=== PATIENT | male | born 1985 | race Caucasian/White ===

== ENCOUNTER 2018-12-25 11:39 | Inpatient (IN) | payer OTHER ==
[~2018-12-25] VITALS: Ht 182.9 cm; Wt 81.7 kg
[2018-12-25] MEDS ORDERED: HALOPERIDOL 5 MG TABLET PO PRN (14:15)
[2018-12-25] MEDS ORDERED: LORazepam 2 MG TABLET PO PRN (14:15)
[2018-12-25] MEDS ORDERED: DiphenhydrAMINE HCL 50 MG/ML VIAL IM ONE (14:15)
[2018-12-25] MEDS ORDERED: LORazepam 2 MG/ML VIAL IM ONE (14:15)
[2018-12-25] MEDS ORDERED: ZOLPIDEM TARTRATE 10 MG TABLET PO PRN (14:15)
[2018-12-25] MEDS ORDERED: HALOPERIDOL LACTATE 5 MG/ML VIAL IM ONE (14:15)
[2018-12-25] MEDS ORDERED: MAGNESIUM SULFATE 2 GM/WATER 50 ML IV ONE (14:45)
[2018-12-25] MEDS ORDERED: SODIUM CHLORIDE 0.9% 1,000 ML IV ONE ×3 (14:45→19:15)
[2018-12-25] MEDS ORDERED: CALCIUM GLUCONATE 100 MG/ML 10 ML IVP ONE (14:45)
[2018-12-25 15:55] LABS: BASOPHILS % (AUTO) 0.2 % (0.0-2.0); EOSINOPHILS % (AUTO) 0 % (1.0-6.0); HEMOGLOBIN 15.1 g/dL (13.5-17.5); LYMPHOCYTES % (AUTO) 15.5 % (22.0-44.0); MEAN CORPUSCULAR HEMOGLOBIN 31.5 pg (26.0-34.0); MEAN CORPUSCULAR HGB CONC 33.5 G/dL (31.0-37.0); MEAN CORPUSCULAR VOLUME 94 fL (80-100); MONOCYTES # (AUTO) 1.3 K/uL (0.1-1.0); MONOCYTES % (AUTO) 10.2 % (2.0-9.0); NEUTROPHILS # (AUTO) 9.8 K/uL (1.8-7.7); NEUTROPHILS % (AUTO) 74.1 % (40.0-70.0); PLATELET COUNT (AUTO) 249 K/uL (150-450); RED BLOOD CELL COUNT(AUTO) 4.79 MIL/uL (4.50-5.90); RED CELL DISTRIBUTION WIDTH 13.9 % (11.5-14.5)
[2018-12-25 16:10] LABS: ANION GAP 11 mmol/L (8-16); CALCIUM, TOTAL 9.8 mg/dL (8.8-10.5); CARBON DIOXIDE 26 mmol/L (22-29); CHLORIDE 102 mmol/L (98-107); GLOMERULAR FILTR. RATE CALC > 60 mL/min (>60); GLUCOSE,RANDOM 127 mg/dL (70-110); POTASSIUM 3.8 mmol/L (3.5-5.1); SODIUM SERUM 139 mmol/L (136-145); UREA NITROGEN, BLOOD 15 mg/dL (7-18)
[2018-12-25 16:11] LABS: ALANINE AMINOTRANSFERASE 19 U/L (12-78); ALBUMIN 4.9 g/dL (3.4-5.0); ALKALINE PHOSPHATASE 88 U/L (46-116); ASPARTATE AMINOTRANSFERASE 18 U/L (15-37); BILIRUBIN,TOTAL 0.8 mg/dL (0.1-1.0); PHOSPHORUS 3.5 mg/dL (2.5-4.9); TOTAL PROTEIN, SERUM 8.5 g/dL (6.4-8.2)
[2018-12-25 17:51] LABS: CREATINE KINASE, TOTAL ONLY 403 U/L (39-308)
[2018-12-25] MEDS ORDERED: LORazepam 2 MG/ML VIAL IVP ONE (19:15)
[2018-12-25] MEDS: OLANZapine 5 MG TABLET PO SCH (20:39)
[2018-12-26 00:31] VITALS: BP 117/83
[2018-12-26] MEDS ORDERED: ACETAMINOPHEN 325 MG TABLET PO PRN (03:30)
[2018-12-26] MEDS ORDERED: OxyCODONE HCL/ACETAMINOPHEN 5-325 MG TABLET PO PRN ×2 (03:30)
[2018-12-26] MEDS ORDERED: MAGNESIUM HYDROXIDE SUSPENSION 30 ML UDCUP PO PRN (03:30)
[2018-12-26] MEDS ORDERED: ONDANSETRON HCL 4 MG/2 ML VIAL IVP PRN (03:30)
[2018-12-26] MEDS ORDERED: 0.9% SODIUM CHLORIDE 10 ML SYRINGE IVP PRN (03:30)
[2018-12-26] MEDS: SODIUM CHLORIDE 0.9% 1,000 ML IV SCH ×3 (04:31→23:29)
[2018-12-26 05:39] VITALS: BP 115/72
[2018-12-26 07:11] LABS: CHOL/HDL RATIO 2.8 (4.2-7.3)
[2018-12-26 07:17] VITALS: BP 122/78
[2018-12-26] MEDS: FAMOTIDINE 10 MG/ML 2 ML VIAL IVP SCH (09:00)
[2018-12-26] MEDS: DOCUSATE SODIUM 100 MG CAPSULE PO SCH ×2 (09:00→21:10)
[2018-12-26 11:27] VITALS: BP 133/76
[2018-12-26] MEDS: OLANZapine 5 MG TABLET PO SCH ×2 (11:47→21:10)
[2018-12-26 16:17] VITALS: BP 128/66
[2018-12-26 21:12] VITALS: BP 109/79
[2018-12-27] VITALS (7 sets, daily range): BP systolic 109–124; BP diastolic 68–73
[2018-12-27 06:57] LABS: BASOPHILS % (AUTO) 1.2 % (0.0-2.0); EOSINOPHILS % (AUTO) 3.6 % (1.0-6.0); HEMATOCRIT 40.2 % (41-53); HEMOGLOBIN 13.4 g/dL (13.5-17.5); LYMPHOCYTES # (AUTO) 2.4 K/uL (1.0-4.8); LYMPHOCYTES % (AUTO) 45.6 % (22.0-44.0); MEAN CORPUSCULAR HEMOGLOBIN 31.6 pg (26.0-34.0); MEAN CORPUSCULAR HGB CONC 33.4 G/dL (31.0-37.0); MEAN CORPUSCULAR VOLUME 95 fL (80-100); MONOCYTES # (AUTO) 0.5 K/uL (0.1-1.0); MONOCYTES % (AUTO) 8.6 % (2.0-9.0); NEUTROPHILS # (AUTO) 2.2 K/uL (1.8-7.7); PLATELET COUNT (AUTO) 156 K/uL (150-450); RED BLOOD CELL COUNT(AUTO) 4.25 MIL/uL (4.50-5.90); RED CELL DISTRIBUTION WIDTH 13.4 % (11.5-14.5)
[2018-12-27 07:14] LABS: ANION GAP 6 mmol/L (8-16); CALCIUM, TOTAL 8.1 mg/dL (8.8-10.5); CARBON DIOXIDE 28 mmol/L (22-29); CHLORIDE 108 mmol/L (98-107); CREATININE 0.95 mg/dL (0.60-1.30); GLOMERULAR FILTR. RATE CALC > 60 mL/min (>60); GLUCOSE,RANDOM 85 mg/dL (70-110); POTASSIUM 4.3 mmol/L (3.5-5.1); SODIUM SERUM 142 mmol/L (136-145); UREA NITROGEN, BLOOD 12 mg/dL (7-18)
[2018-12-27] MEDS: FAMOTIDINE 10 MG/ML 2 ML VIAL IVP SCH (08:26)
[2018-12-27] MEDS: DOCUSATE SODIUM 100 MG CAPSULE PO SCH ×2 (08:26→20:41)
[2018-12-27] MEDS: OLANZapine 5 MG TABLET PO SCH ×2 (08:26→20:41)
[2018-12-27] MEDS: SODIUM CHLORIDE 0.9% 1,000 ML IV SCH ×2 (13:54→23:20)
[2018-12-27] MEDS: BuPROPion HCL XL 150 MG ER TABLET PO SCH (13:54)
[2018-12-28 05:15] VITALS: BP 119/69
[2018-12-28 07:15] VITALS: BP 116/74
[2018-12-28] MEDS: OLANZapine 5 MG TABLET PO SCH ×2 (07:57→19:57)
[2018-12-28] MEDS: BuPROPion HCL XL 150 MG ER TABLET PO SCH (07:57)
[2018-12-28] MEDS: FAMOTIDINE 10 MG/ML 2 ML VIAL IVP SCH ×2 (07:59→19:57)
[2018-12-28] MEDS: DOCUSATE SODIUM 100 MG CAPSULE PO SCH ×2 (07:59→19:57)
[2018-12-28 11:30] VITALS: BP 111/62
[2018-12-28] MEDS: SODIUM CHLORIDE 0.9% 1,000 ML IV SCH (13:55)
[2018-12-28] MEDS: ASPIRIN 81 MG CHEWABLE TABLET PO SCH (14:15)
[2018-12-28 15:09] VITALS: BP 118/72
[2018-12-28 19:20] VITALS: BP 118/65
[2018-12-28 23:02] VITALS: BP 120/73
[2018-12-29] MEDS: SODIUM CHLORIDE 0.9% 1,000 ML IV SCH ×2 (03:10→10:11)
[2018-12-29 05:03] VITALS: BP 122/69
[2018-12-29 07:38] LABS: BASOPHILS % (AUTO) 1.1 % (0.0-2.0); EOSINOPHILS % (AUTO) 2.9 % (1.0-6.0); HEMATOCRIT 42.3 % (41-53); HEMOGLOBIN 14.2 g/dL (13.5-17.5); LYMPHOCYTES # (AUTO) 1.9 K/uL (1.0-4.8); LYMPHOCYTES % (AUTO) 34.6 % (22.0-44.0); MEAN CORPUSCULAR HEMOGLOBIN 31.5 pg (26.0-34.0); MEAN CORPUSCULAR HGB CONC 33.6 G/dL (31.0-37.0); MEAN CORPUSCULAR VOLUME 94 fL (80-100); MONOCYTES # (AUTO) 0.4 K/uL (0.1-1.0); NEUTROPHILS # (AUTO) 2.9 K/uL (1.8-7.7); NEUTROPHILS % (AUTO) 53.4 % (40.0-70.0); PLATELET COUNT (AUTO) 176 K/uL (150-450); RED CELL DISTRIBUTION WIDTH 13.3 % (11.5-14.5)
[2018-12-29 07:48] LABS: ANION GAP 6 mmol/L (8-16); CALCIUM, TOTAL 8.4 mg/dL (8.8-10.5); CARBON DIOXIDE 28 mmol/L (22-29); CHLORIDE 106 mmol/L (98-107); CREATININE 0.91 mg/dL (0.60-1.30); GLOMERULAR FILTR. RATE CALC > 60 mL/min (>60); GLUCOSE,RANDOM 88 mg/dL (70-110); POTASSIUM 4.2 mmol/L (3.5-5.1); SODIUM SERUM 140 mmol/L (136-145); UREA NITROGEN, BLOOD 14 mg/dL (7-18)
[2018-12-29] MEDS: BuPROPion HCL XL 150 MG ER TABLET PO SCH (08:15)
[2018-12-29] MEDS: ASPIRIN 81 MG CHEWABLE TABLET PO SCH (08:15)
[2018-12-29] MEDS: OLANZapine 5 MG TABLET PO SCH (08:15)
[2018-12-29] MEDS: FAMOTIDINE 10 MG/ML 2 ML VIAL IVP SCH (08:16)
[2018-12-29] MEDS: DOCUSATE SODIUM 100 MG CAPSULE PO SCH (08:16)
[2018-12-29 08:23] VITALS: BP 124/75
[2018-12-29 11:22] VITALS: BP 128/74
[2018-12-29] MEDS ORDERED: OLAN5TAB2 PO (13:27)
[2018-12-29] MEDS ORDERED: BUPR-93 PO (13:27)
[2018-12-29] MEDS ORDERED: LORA-999 PO (13:28)
[2018-12-29 15:20] VITALS: BP 126/78
== END 2018-12-29 18:05 | disposition home or self-care (01) | DRG 750 ==
LOC: EMS 11:41 → 5S 23:24 → 6N 12-27 18:10
PROVIDERS: ADMIT Internal Medicine; ATTEND Internal Medicine
DX: F20.9 Schizophrenia, unspecified (principal); F15.129 Other stimulant abuse with intoxication, unspecified; R00.0 Tachycardia, unspecified
CPT/HCPCS: 83735; 84100; 93005; 93306; 96372; 99291; G0480; J1200; J1630; J2060; J3475; J3490; J7030